=== PATIENT | female | born 1950 | race Caucasian/White ===

== ENCOUNTER 2022-05-19 19:08 | Emergency (ER) | payer MEDICARE, OTHER ==
[~2022-05-19] VITALS: Ht 167.6 cm; Wt 77.1 kg
[2022-05-19 19:57] VITALS: BP 121/79
[2022-05-19 20:00] VITALS: BP 122/82
[2022-05-19 20:15] VITALS: BP 127/67
[2022-05-19 21:03] VITALS: BP 127/67
== END 2022-05-19 21:41 | disposition home or self-care (01) ==
LOC: ED 19:08
DX: S46.911A Strain of unspecified muscle, fascia and tendon at shoulder and upper arm level, right arm, initial encounter (principal); M54.12 Radiculopathy, cervical region; W19.XXXA Unspecified fall, initial encounter; Y92.009 Unspecified place in unspecified non-institutional (private) residence as the place of occurrence of the external cause